=== PATIENT | female | born 2005 | race Caucasian/White ===

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

== ENCOUNTER 2024-02-16 13:18 | Emergency (ER) | payer OTHER, SELFPAY ==
[2024-02-16 13:25] VITALS: BP 133/70; PULSE 100; RESP 16; TEMP 37.1; O2SAT 98
--- NOTE | 2024-02-16 13:35 | ED.URI ---
HPI - URI/Sore Throat General Chief Complaint: Upper Respiratory Infection Stated Complaint: Sore Throat/Ear Irritation Time Seen by Provider: 02/16/24 13:30 Source: patient Mode of arrival: ambulatory Limitations: no limitations History of Present Illness HPI Narrative: Mindy is a 18-year-old female patient presenting to the clinic today with complaints of sore throat and left ear pain that started today. Fever, chills, body aches. Does have runny nose and congestion. States that the left ear feels clogged and is popping. MD elicited complaint: sore throat and nasal congestion Related Data Home Medications Medication Instructions Recorded Confirmed citalopram 20 mg tablet 20 mg DAILY 07/10/20 02/16/24 hydroxyzine HCl 25 mg tablet 25 mg PO DIRECTED 09/03/22 02/16/24 dexmethylphenidate 25 mg 25 mg PO DAILY 02/10/23 02/16/24 capsule,extended release [id number] Allergies Allergy/AdvReac Type Severity Reaction Status Date / Time cefdinir AdvReac Unknown Other Verified 02/16/24 13:31 Review of Systems Review of Systems: Pertinent positives per HPI. Patient denies any fever, chills, rash, headache, visual changes, dizziness, shortness of breath, chest pain, palpitations, nausea, vomiting, diarrhea, constipation, abdominal pain, or any urinary issues. [facility] Past Medical History Medical History ADD (attention deficit disorder) Depression PTSD (post-traumatic stress disorder) Surgical History Surgical History History of surgical procedure on mouth 09/2020 Family History Family History Father Acute myocardial infarction Social History Social History Smoking status: Never smoker Alcohol intake: never Substance use: never Substance use type: does not use Living arrangements: with family Occupation/Education: student Additional occupation/education comments: senior Gender identity (if verbalized by the patient): Other Sexual Orientation (if Verbalized by the Patient): Bisexual Comments At the time of my signature, I reviewed and agree with the nursing past medical, surgical, social, and family history. There is no relevant family history pertinent to the patient complaint. Exam Narrative: General: Well-developed, well nourished, in no apparent distress Head: Normocephalic, atraumatic Eyes: Pupils equally round and reactive to light bilaterally, EOM intact, sclera and conjunctive clear, no discharge, lids normal Ears: TMs intact and congested, ear canals clear, no drainage, grossly hearing normal. Nose: Nares patent, clear nasal discharge, no inflammation, no sinus tenderness. Mouth: Oral pharynx red without lesions or masses, good dentition, MMM. Neck: Supple, trachea midline, no enlargement of anterior or posterior cervical nodes, no thyroid masses or goiter palpable. Cardio: Regular rate and rhythm, s1 and s2 normal, no murmur appreciated. Resp: Clear to auscultation bilaterally, no rhonchi, rales, wheezing or rubs Course Course Emergency Course: Portions of this record may have been created with voice recognition software. Level of Care: Express Care Visit Vital Signs Vital signs: Vital Signs Temperature 37.1 C 02/16/24 13:25 Pulse Rate 100 02/16/24 13:25 Respiratory Rate 16 02/16/24 13:25 Blood Pressure 133/70 02/16/24 13:25 Pulse Oximetry 98 02/16/24 13:25 Oxygen Delivery Room Air 02/16/24 13:25 Temperature 37.1 C 02/16/24 13:25 Pulse Rate 100 02/16/24 13:25 Respiratory Rate 16 02/16/24 13:25 Blood Pressure 133/70 02/16/24 13:25 Pulse Oximetry 98 02/16/24 13:25 Oxygen Delivery Room Air 02/16/24 13:25 Vital signs reviewed MDM - URI/Sore Throat MDM Narrative Medical d
== END 2024-02-16 13:52 | disposition home or self-care (01) ==
PROVIDERS: Emergency Provider Nurse Practitioner Family; PCP Pediatrics
DX: J02.0 Streptococcal pharyngitis (principal); F90.9 Attention-deficit hyperactivity disorder, unspecified type; F32.A Depression, unspecified
CPT/HCPCS: 87880; 99213; G0463

== ENCOUNTER 2025-09-05 17:05 | Emergency (ER) | payer OTHER, SELFPAY ==
[2025-09-05 17:23] VITALS: BP 121/86; PULSE 103; RESP 16; TEMP 36.3; O2SAT 95
--- NOTE | 2025-09-05 17:48 | ED.GENADULT ---
HPI - General Adult General Chief complaint: Upper Respiratory Infection Stated complaint: strep Time Seen by Provider: 09/05/25 17:48 Source: patient Mode of arrival: ambulatory Limitations: no limitations History of Present Illness HPI narrative: 19-year-old female patient presents to the [facility] with complaints of sore throat for the past 2 days. Patient states she has had a little fatigue and some body aches denies any fevers. Patient states her ears have been a little full denies cough or c Related Data Home Medications ?Medication ?Instructions ?Recorded ?Confirmed ?Last Taken ?Type dexmethylphenidate 25 mg 25 mg PO DAILY 02/10/23 06/02/25 Unknown History capsule,extended release [id number] hydroxyzine HCl 25 mg tablet 25 mg PO BID PRN 04/23/24 06/02/25 Unknown History escitalopram oxalate 20 mg tablet mg PO 06/02/25 06/02/25 Unknown History Allergies Allergy/AdvReac Type Severity Reaction Status Date / Time cefdinir AdvReac Unknown Other Verified 06/02/25 17:01 Review of Systems Review of Systems: CONSTITUTIONAL: Denies fever, chills, or sweats. positive fatigue EYES: Denies visual changes, redness, or discharge. ENT: Denies rhinorrhea, congestion, Positive sore throat, or otalgia. CARDIOVASCULAR: Denies chest pain, palpitations, or edema. RESPIRATORY: Denies cough or dyspnea. GASTROINTESTINAL: Denies abdominal pain, nausea, vomiting, or diarrhea. GENITOURINARY: Denies dysuria or hematuria. SKIN: Denies rash or itching. MUSCULOSKELETAL: Denies back pain, joint pain, or myalgia. NEUROLOGIC: Denies headache, numbness, or weakness. PSYCHIATRIC: Denies anxiety or depression. [facility] Past Medical History Medical History PTSD (post-traumatic stress disorder) ADD (attention deficit disorder) Depression Surgical History Surgical History History of surgical procedure on mouth 09/2020 Family History Family History Father Acute myocardial infarction Social History Social History Smoking status: Never smoker Alcohol intake: never Substance use: never Substance use type: does not use Current Housing: Decline to Answer Concerned About Future Housing: Decline to Answer Difficulty Paying Gas/Electric Bills: Decline to Answer Difficulty Paying for Meds: Decline to Answer Currently Unemployed: Decline to Answer Education: Decline to Answer Difficulty w/ Childcare or Family Care: Decline to Answer Living arrangements: with family Occupation/Education: student Additional occupation/education comments: college Gender identity (if verbalized by the patient): Female Sexual Orientation (if Verbalized by the Patient): Straight or Heterosexual Comments At the time of my signature I agree with nursing past medical history, surgical, social, and family history. There is no relevant family history pertinent to the presenting complaint. Exam Narrative: GENERAL: Well-appearing, well-nourished, and in no acute distress. HEAD: Normocephalic, atraumatic. EYES: PERRLA and EOMI. ENT: Nares with erythema edema noted bilaterally, no rhinorrhea or epistaxis. Mucous membranes moist. posterior pharynx with some postnasal drip. No tonsillar enlargement, no exudates or lesions present. Bilateral TMs are clear no erythema or foreign bodies the canal. NECK: Supple. No lymphadenopathy CHEST: Clear to auscultation. No respiratory distress. HEART: Regular rate and rhythm. No murmur heard. Normal peripheral pulses. ABDOMEN: Soft, nontender, nondistended, normal active bowel sounds. EXTREMITIES: Normal range of motion. No edema. SKIN: Warm, dry, no rash. NEURO: No focal deficits. Alert and oriented x3. Course Course Level of Care: Express Care Visit Vital Signs Vital signs: Vital Signs Temperature 36.3 C L 09/05/25 17:23 Pulse Rate 103 H 09/05/25 17:23 Respiratory Rate 16 09/05/25 17:23 Blood Pressure 121/86 09/05/25 17:23 Pulse Oximetry 95 09/05/25 17:23 Oxygen Delivery Room Air 09/05/25 17:23 Temperature 36.3 C L 09/05/25 17:23 Pulse Rate 103 H 09/05/25 17:23 Respiratory Rate 16 09/05/25 17:23 Blood Pressure 121/86 09/05/25 17:23 Pulse Oximetry 95 09/05/25 17:23 Oxygen Delivery Room Air 09/05/25 17:23 Vital signs reviewed. Medical Decision Making MDM Narrative Medical decision making narrative: Plan of care patient is discharged home with symptomatic treatment. Discussed with patient that we will send her throat swab to the lab for culture if the culture comes back positive we will call her antibiotics at that time. Discussed with patient in depth some things that she can use to help with symptom relief. Patient is aware the plan of care denies any other questions or concerns at this time. Differential Diagnosis Differential Diagnosis: Differential diagnosis: Viral pharyngitis, pharyngitis, group A strep, infectious mononucleosis, gonococcal pharyngitis, exudative pharyngitis, oral candidiasis. Chronic allergies, postnasal drip, GERD, abscess formation, but glottitis, retropharyngeal abscess formation, or airway obstruction. Vital Signs Vital Signs: Vital Signs Temperature 36.3 C L 09/05/25 17:23 Pulse Rate 103 H 09/05/25 17:23 Respiratory Rate 16 09/05/25 17:23 Blood Pressure 121/86 09/05/25 17:23 Pulse Oximetry 95 09/05/25 17:23 Oxygen Delivery Room Air 09/05/25 17:23 Temperature 36.3 C L 09/05/25 17:23 Pulse Rate 103 H 09/05/25 17:23 Respiratory Rate 16 09/05/25 17:23 Blood Pressure 121/86 09/05/25 17:23 Pulse Oximetry 95 09/05/25 17:23 Oxygen Delivery Room Air 09/05/25 17:23 Critical Care Time Critical Care Time Critical Care Time: No Discharge Plan Discharge Clinical Impression: Pharyngitis Qualifiers: Pharyngitis/tonsillitis etiology: unspecified etiology Qualified Code(s): J02.9 - Acute pharyngitis, unspecified Patient Disposition: Home Condition: Stable Instructions: Antibiotic Form, Pharyngitis (ED) Additional Instructions: A sore throat can be caused by an infection from a virus or bacteria. Sore throat can also be caused by postnasal drip, allergies, and exposure to smoke. A viral sore throat last 3-4 days and cannot be treated with antibiotics. One type of sore throat virus, infectious mononucleosis (mono), can last for 3 weeks and older children. The germs that cause these infections are contagious and can be spread by coughing or sharing drinks or utensils. Contact her primary care physician or go to the ER if: Your trouble breathing or swallowing because her throat is swollen or sore. You're drooling because it hurts too much to swallow. You're painful lump in your throat go away after 5 days. You're fever is higher than 10 2??F or last longer than 3 days. You have confusion. You are blood in your throat. You're sore throat should feel better within 3-5 days without treatment if it is caused by virus. You may need the following: increase vitamin C intake, 2000 mg in the a.m. and 2000 mg in the p.m. 45-50 mg of zinc daily for for 5 days. [id number] IU vitamin-D may also use honey or hot Green tea with honey to help with sore throat symptoms. Ibuprofen or Tylenol as needed for pain or fever Gargle warm salt water Drink more liquids, cold or warm drinks may help soothe her throat. Humidifier in your room. Cough drops, ice, soft foods, or popsicles may help soothe her throat. A spoonful of honey could help with inflammation and soothe her throat. Wash her hands with soap and water, do not share food or drinks, throat away her toothbrush after 72 hours. Patient Language: Irish Prescriptions: No Action dexmethylphenidate 25 mg capsule,ER biphasic 50-50 25 mg PO DAILY hydroxyzine HCl 25 mg tablet 25 mg PO BID PRN escitalopram oxalate 20 mg tablet PO June Fe 24 1 mg-20 mcg (24)/75 mg (4) tablet 1 tablet PO DAILY Qty: 84 4RF Follow-up/Referrals: PHYSICIAN,MINE UTILITY OPERATOR [Primary Care Provider, Internal Medicine] Time of Disposition: 17:57
[2025-09-05 18:03] LABS: EDSTREPNEGPOS1 Negative (Negative)
== END 2025-09-05 18:00 | disposition home or self-care (01) ==
PROVIDERS: Emergency Provider Nurse Practitioner Family
DX: J02.9 Acute pharyngitis, unspecified (principal); F98.8 Other specified behavioral and emotional disorders with onset usually occurring in childhood and adolescence; F32.A Depression, unspecified
CPT/HCPCS: 87081; 87880; 99213; G0463

== ENCOUNTER 2025-10-14 15:32 | Emergency (ER) | payer OTHER, SELFPAY ==
[2025-10-14 15:42] VITALS: BP 144/80; PULSE 97; RESP 20; TEMP 36.6; O2SAT 99
--- NOTE | 2025-10-14 15:53 | ED.DENTAL ---
HPI - Dental/Oral General Chief complaint: Dental/Oral Stated complaint: swelling underneath tongue Time Seen by Provider: 10/14/25 15:53 Source: patient Mode of arrival: ambulatory Limitations: no limitations History of Present Illness HPI Narrative: 19 yo F presents with c/o L sided lower dental pain with swelling. Pain for the past 2 to 3 days. Has dentist but has not called for appt. Afebrile. All systems reviewed and negative except as noted above. Related Data Home Medications ?Medication ?Instructions ?Recorded ?Confirmed ?Last Taken ?Type dexmethylphenidate 25 mg 25 mg PO DAILY 02/10/23 06/02/25 Unknown History capsule,extended release [id number] hydroxyzine HCl 25 mg tablet 25 mg PO BID PRN 04/23/24 06/02/25 Unknown History escitalopram oxalate 20 mg tablet mg PO 06/02/25 06/02/25 Unknown History Allergies Allergy/AdvReac Type Severity Reaction Status Date / Time cefdinir AdvReac Unknown GI Verified 10/14/25 15:48 [facility] Past Medical History Medical History PTSD (post-traumatic stress disorder) ADD (attention deficit disorder) Depression Surgical History Surgical History History of surgical procedure on mouth 09/2020 Family History Family History Father Acute myocardial infarction Social History Social History Smoking status: Never smoker Alcohol intake: never Substance use: never Substance use type: does not use Current Housing: Decline to Answer Concerned About Future Housing: Decline to Answer Difficulty Paying Gas/Electric Bills: Decline to Answer Difficulty Paying for Meds: Decline to Answer Currently Unemployed: Decline to Answer Education: Decline to Answer Difficulty w/ Childcare or Family Care: Decline to Answer Living arrangements: with family Occupation/Education: student Additional occupation/education comments: college Gender identity (if verbalized by the patient): Female Sexual Orientation (if Verbalized by the Patient): Straight or Heterosexual Comments At time of signature, agree with nursing past medical, surgical, social and family history. There is no relevant family history pertinent to the presenting complaint. Exam Narrative: GENERAL: This is a well-nourished, well-developed patient, in no apparent distress. HEAD: normocephalic, atraumatic. EYES: PERRL. Sclera clear/white. Vision is grossly intact. EARS: External ears normal NOSE: External nose normal THROAT: Mucous membranes moist, posterior pharynx clear MOUTH: no significant abnormalities noted to teeth other than mild decay/plaque build up. tender to tooth #20 and #21. swelling to floor mouth with tenderness near these teeth. NECK: Neck supple, non-tender without lymphadenopathy, masses or thyromegaly. CARDIOVASCULAR: Regular rate and rhythm without murmurs, gallops, or rubs. RESPIRATORY: Clear to auscultation. Breath sounds equal bilaterally. No wheezes, rales, or rhonchi. SKIN: warm, Dry, intact with no suspicious lesions or rash, good texture and turgor. NEURO: awake, alert, and oriented to person, place and time. There were no obvious focal neurologic abnormalities. EXTREMITIES: No joint tenderness, effusion, or edema noted. Course Course Level of Care: Express Care Visit Vital Signs Vital signs: Vital Signs Temperature 36.6 C 10/14/25 15:42 Pulse Rate 97 10/14/25 15:42 Respiratory Rate 20 10/14/25 15:42 Blood Pressure 144/80 H 10/14/25 15:42 Pulse Oximetry 99 10/14/25 15:42 Oxygen Delivery Room Air 10/14/25 15:42 Temperature 36.6 C 10/14/25 15:42 Pulse Rate 97 10/14/25 15:42 Respiratory Rate 20 10/14/25 15:42 Blood Pressure 144/80 H 10/14/25 15:42 Pulse Oximetry 99 10/14/25 15:42 Oxygen Delivery Room Air 10/14/25 15:42 Reviewed MDM MDM Narrative Medical decision making narrative: Will treat dental infection with penicillin. Recommend follow-up with dentist at next available appointment. Will go to the ER for any worsening of symptoms. Differential Diagnosis Differential Diagnosis: Differential diagnostic considerations for dental issues include gingival abscess, dental caries, toothache, dental abscess, fracture of tooth, aphthous ulcer, TMJ. Discharge Plan Discharge Clinical Impression: Dental infection Patient Disposition: Home Condition: Stable Instructions: Antibiotic Form, Toothache (ED) Additional Instructions: Take antibiotic as prescribed until gone. Follow-up with dentist for further evaluation. If pain is severe with significant swelling go to the ER. Patient Language: Indonesian Prescriptions: New penicillin V potassium 500 mg tablet 500 mg PO QID 10 Days Qty: 40 0RF No Action dexmethylphenidate 25 mg capsule,ER biphasic 50-50 25 mg PO DAILY hydroxyzine HCl 25 mg tablet 25 mg PO BID PRN escitalopram oxalate 20 mg tablet PO Fe 24 1 mg-20 mcg (24)/75 mg (4) tablet See Rx Instructions .ROUTE .COMPLEX Qty: 420 12RF Dose Instruction: TAKE 1 TABLET BY MOUTH DAILY Rx Instructions: TAKE 1 TABLET BY MOUTH DAILY Follow-up/Referrals: UNKNOWN,DOCTOR [Primary Care Provider] Stand Alone Forms: Work/School Release IP Time of Disposition: 16:02
== END 2025-10-14 16:10 | disposition home or self-care (01) ==
PROVIDERS: Emergency Provider Nurse Practitioner Family
DX: K04.7 Periapical abscess without sinus (principal); F98.8 Other specified behavioral and emotional disorders with onset usually occurring in childhood and adolescence; F32.A Depression, unspecified
CPT/HCPCS: 99213; G0463